=== PATIENT | female | born 1990 | race Caucasian/White ===

== ENCOUNTER 2020-08-17 09:38 | Emergency (ER) | payer BC ==
[~2020-08-17] VITALS: Ht 160 cm; Wt 81.8 kg
[2020-08-17 09:48] VITALS: Ht 160 cm; Wt 81.8 kg
[2020-08-17] MEDS ORDERED: ULTRAM50 MG PO (09:50)
[2020-08-17 10:21] LABS: BASOPHILS 0.1 % (0-2); CALC OSMOLALITY 271 mosm/kg (275-300); CALCIUM 8.6 mg/dL (8.5-10.1); CARBON DIOXIDE 29.1 mmol/L (21.0-32.0); CHLORIDE - SERUM 105 mmol/L (98-107); CREATININE - SERUM 0.7 mg/dL (0.6-1.3); GLUCOSE 86 mg/dL (74-106); HEMATOCRIT 40.7 % (36.0-48.0); HEMOGLOBIN 13.4 g/dL (12-16); IMMATURE GRANULOCYTES 0.1 % (0-5); MCH 28.7 pg (26.0-34.0); MCHC 32.9 g/dL (31.0-37.0); MCV 87.2 fL (80.0-100.0); MEAN PLATELET VOLUME 10.1 fL (7.4-10.4); MONOCYTES 5.8 % (2-11); PLATELET COUNT 197 10x3/uL (130-400); POTASSIUM - SERUM 3.9 mmol/L (3.5-5.1); RBC 4.67 10x6/uL (4.00-5.40); SODIUM 137 mmol/L (136-145); UREA NITROGEN 10 mg/dL (7-18); eGFR NON AFRICAN AMERICAN > 90 mL/min (90-120)
[2020-08-17 10:26] LABS: HCG SERUM NEGATIVE (NEGATIVE)
[2020-08-17 10:28] LABS: ALBUMIN 3.9 g/dL (3.4-5.0); ALKALINE PHOSPHATASE 46 U/L (30-120); ALT (SGPT) 20 U/L (10-68); BILIRUBIN - TOTAL 0.44 mg/dL (0.2-1.3); PROTEIN - SERUM 7.3 g/dL (6.4-8.2)
[2020-08-17 10:35] LABS: BACTERIA MODERATE HPF (NONE SEEN); BILIRUBIN NEGATIVE (NEGATIVE); EPITHELIAL CELLS OCC /hpf (0-5); KETONE NEGATIVE (NEGATIVE); NITRITE NEGATIVE (NEGATIVE); UROBILINOGEN NORMAL mg/dL (< 2); WHITE CELLS - URINE OCC HPF (0-4)
[2020-08-17] MEDS ORDERED: MACROBID100 MG PO (11:28)
[2020-08-17] MEDS ORDERED: KEFLEX500 MG PO (11:28)
[2020-08-17 13:50] VITALS: BP 120/82
== END 2020-08-17 11:54 | disposition home or self-care (01) ==
LOC: D.ER 09:38
PROVIDERS: Family Medicine
DX: N39.0 Urinary tract infection, site not specified (principal)